=== PATIENT | male | born 1965 | race Caucasian/White ===

== ENCOUNTER 2021-04-08 09:32 | Outpatient (CLI) | payer OTHER, SELFPAY ==
--- NOTE | ~2021-04-08 | XR_ITS ---
EXAMINATION: XR femur LT min 2V DATE: 04/08/2021 10:20 INDICATION: Left lower limb injury. TECHNIQUE: 2 views of left femur on 4 radiographs were obtained. COMPARISON: None. FINDINGS: Bone alignment is normal. No fracture. There is mild left hip osteoarthritis. No knee joint effusion. IMPRESSION: 1. Mild left hip osteoarthritis. Reviewed, dictated and finalized at location A.
--- NOTE | ~2021-04-08 | XR_ITS ---
EXAMINATION: XR hip BI wo pelvis INDICATION: Low back pain TECHNIQUE: Two views of each hip are obtained. COMPARISON: None available FINDINGS: Bone alignment is normal. There is no fracture. There is mild osteoarthritis of the hips. T he soft tissues are unremarkable. IMPRESSION: 1. Mild osteoarthritis of the hips. Reviewed, dictated and finalized at location A.
--- NOTE | ~2021-04-08 | XR_ITS ---
EXAMINATION: XR lumbar spine 2-3V DATE: 04/08/2021 10:20 INDICATION: Low back pain TECHNIQUE: Anteroposterior and lateral views of the lumbar spine, and cone-down lateral view of the l umbosacral junction were obtained. COMPARISON: CT, 11/21/2013 FINDINGS: There is no fracture, dislocation, or subluxation. The vertebral body heights are normal. T here is severe loss of intervertebral disc space height at L3-4 and moderate loss of intervertebral d isc space height throughout the remainder of the lumbar spine. Small degenerative osteophytes project from the anterior endplates of multiple vertebral bodies. 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 IMPRESSION: 1. Moderate lumbar spondylosis with interval worsening. Reviewed, dictated and finalized at location A.
== END 2021-04-08 09:33 | disposition home or self-care (01) ==
LOC: CHSIMG 09:35
PROVIDERS: PCP Nurse Practitioner Family; Visit Provider Nurse Practitioner Family
DX: S39.92XD Unspecified injury of lower back, subsequent encounter (principal); S89.92XD Unspecified injury of left lower leg, subsequent encounter
CPT/HCPCS: 72100; 73521; 73552